=== PATIENT | female | born 1950 | race Caucasian/White ===

== ENCOUNTER 2017-02-24 11:31 | Outpatient (CLI) | payer MEDICARE ==
[2017-02-24 11:46] LABS: BASOPHILS % 0.6 (0.0-1.5); EOSINOPHILS % 1.8 % (0.0-6.8); MEAN CORPUSCULAR HEMOGLOBIN 29.9 pg (28.0-34.0); MEAN CORPUSCULAR VOLUME 94.3 fl (80.0-100.0); MONOCYTES % 3.1 % (0.0-11.0); NEUTROPHILS # 4.1 # k/uL (1.4-7.7)
[2017-02-24 12:12] LABS: eGFR (African) > 60; eGFR (Non-African) > 60
== END 2017-02-24 12:17 ==
LOC: LAB 11:31
PROVIDERS: ATTEND Family Medicine
DX: I10 Essential (primary) hypertension (principal)
CPT/HCPCS: 36415; 80053; 85025

== ENCOUNTER 2018-02-06 09:22 | Outpatient (CLI) | payer MEDICARE ==
--- NOTE | 2018-02-07 10:17 | HISTORY AND PHYSICAL REPORT ---
REFERRING PHYSICIAN: Dr. Manuel Pan Dear Dr. Pan: HISTORY OF PRESENT ILLNESS: I had the opportunity of seeing Krupa Sen today as an outpatient at [facility]. This is a delightful 67-year-old white female who presents with a history of left upper extremity radiculitis. She said this occurred about 3 weeks ago. She said she awoke with the worse neck pain of her life with pain radiating to the left shoulder blade and down the left arm. She was given a shot of hydrocortisone at Dr. Pan's office. MRI reveals reversal curvature and C5-6 disc protrusion with right greater than left neural foraminal stenosis. At this point, she says she is asymptomatic. She said the symptoms completely resolved after the treatment at Dr. Pan's office. She is currently not having any pain symptoms or any weakness. PAST MEDICAL HISTORY: 1. History of heart murmur. 2. Hypertension. 3. Asthma or bronchitis. PAST SURGICAL HISTORY: 1. Hysterectomy. 2. Appendectomy. DAILY MEDICATIONS: 1. Metoprolol 50 mg daily. 2. Lisinopril 20 mg daily. 3. Tizanidine 4 mg b.i.d. p.r.n spasms. ALLERGIES: 1. Sulfa. 2. Trazodone. 3. Penicillin. 4. Levaquin. 5. Benadryl. SOCIAL HISTORY: She has never used tobacco. She quit drinking alcohol in 1974. Denies recreational drugs. She has been for 49 years. She has 3 children. She lives at home with her spouse. She completed the 12th grade. She is not currently employed. 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 She is not disabled. FAMILY HISTORY: Father with heart disease. Mother with heart disease and cancer. REVIEW OF SYSTEMS: In the last month or so, she reports a weight loss. At this time, she has no complaints, so she has no exacerbating or alleviating factors. PHYSICAL EXAMINATION: General: This is a well-nourished, well-developed white female in no apparent distress. Vital Signs: BP: 130/74, P: 80, R: 20, oxygen saturation is 98% on room air. HEENT: Pupils are equal, round, and reactive to light and accommodation. Extraocular movements intact. No facial droop. Neck: There is full range of motion of the cervical spine. No evidence of adenopathy. Thyroid is nontender, not enlarged. Carotids are without bruits. Chest: Clear to auscultation bilaterally. Normal chest excursion. Heart: Regular rate and rhythm without murmur. Abdomen: Benign. Normoactive bowel sounds. Motor/sensory: Intact in the upper and lower extremities. Moves all extremities freely. Extremities:Strength is 5/5 and equal in the upper extremities. There is some diminished triceps strength on the left side. There is an absent triceps reflex on the left and 2+ reflex on the right. Powder Expert strength is intact and equal. DIAGNOSTIC STUDIES: MRI was as noted above. ASSESSMENT: Left C5-C6 radiculitis, now resolved. PLAN: Plan on following her up on an as-needed basis. cc: Dr. Manuel SCALES
== END 2018-02-06 09:23 ==
LOC: OUT 09:22
PROVIDERS: ATTEND Anesthesiology Pain Medicine
DX: M54.12 Radiculopathy, cervical region (principal); I10 Essential (primary) hypertension; R01.1 Cardiac murmur, unspecified
CPT/HCPCS: 99214; G0463

== ENCOUNTER 2018-11-21 16:40 | Outpatient (CLI) | payer MEDICARE ==
--- NOTE | 2018-11-21 18:59 | Diagnostic Imaging Report ---
[facility] [address] [facility] [address] [place], [place]. [address] Report Submission Date: Nov 21, 2018 6:34:18 PM CDT Patient Study Name: RIMA OROZCO Date: Nov 21, 2018 4:39:59 PM CDT Modality Type: DX Gender: F Description: CHEST 2VIEW : 48 Institution: [facility] Physician: CURT WILLIS Chest, PA and lateral HISTORY Cough FINDINGS No infiltrate, effusion or pneumothorax is present. Heart size, mediastinum and pulmonary vascularity are normal. There is calcification in the thoracic aorta. Mid thoracic vertebral body compression fracture is present, likely T8. IMPRESSION No active pulmonary disease. T8 vertebral body compression fracture of indeterminate age. Atherosclerosis. Electronically signed on Nov 21, 2018 6:34:18 PM CDT by: Cristofer SCALES
== END 2018-11-21 16:42 ==
LOC: RAD 16:40
PROVIDERS: ATTEND Family Medicine
DX: J98.4 Other disorders of lung (principal); R05 Cough
CPT/HCPCS: 71046

== ENCOUNTER 2019-04-15 18:21 | Outpatient (CLI) | payer MEDICARE ==
[2019-04-15 18:35] LABS: eGFR (Non-African) > 60
[2019-04-15 18:37] LABS: BASOPHILS % 0.6 % (0.0-1.5); NEUTROPHILS # 4.8 # k/uL (1.4-7.7)
== END 2019-04-15 18:26 ==
LOC: LABRHC 18:21
PROVIDERS: ATTEND Family Medicine
DX: I10 Essential (primary) hypertension (principal)
CPT/HCPCS: 80053; 85025